=== PATIENT | female | born 1955 | race Native Hawaiian/Other Pacific Islander ===

== ENCOUNTER 2021-05-31 14:11 | Emergency (ER) | payer OTHER ==
[~2021-05-31] VITALS: Ht 165.1 cm; Wt 95.3 kg
[2021-05-31 14:12] VITALS: TEMP 97.6
[2021-05-31 15:10] VITALS: BP 134/76
== END 2021-05-31 16:21 | disposition home or self-care (01) ==
LOC: ED 14:11
DX: M79.18 Myalgia, other site (principal); M79.661 Pain in right lower leg; Z98.890 Other specified postprocedural states
CPT/HCPCS: 99282

== ENCOUNTER 2022-02-03 21:02 | Emergency (ER) | payer OTHER ==
[~2022-02-03] VITALS: Ht 165.1 cm; Wt 93.9 kg
[2022-02-04 00:12] VITALS: BP 130/62; TEMP 97.6
[2022-02-04] MEDS ORDERED: METFORMIN HCL500 M1 PO (03:35)
[2022-02-04] MEDS ORDERED: GABA300C2 PO (03:36)
[2022-02-04] MEDS ORDERED: CELECOXIB200 MG PO (03:36)
== END 2022-02-04 00:12 | disposition home or self-care (01) ==
LOC: ED 21:02
DX: S09.8XXA Other specified injuries of head, initial encounter (principal); S00.03XA Contusion of scalp, initial encounter; V03.90XA Pedestrian on foot injured in collision with car, pick-up truck or van, unspecified whether traffic or nontraffic accident, initial encounter; Y92.410 Unspecified street and highway as the place of occurrence of the external cause
CPT/HCPCS: 96372; 99283; J1885